=== PATIENT | female | born 1955 | race Caucasian/White ===

== ENCOUNTER 2022-08-20 13:57 | Emergency (ER) | payer MEDICARE, SELFPAY ==
[2022-08-20 14:08] VITALS: BP 138/86; PULSE 87; RESP 18; TEMP 36.7; O2SAT 98
--- NOTE | 2022-08-20 14:25 | ED.GENADULT ---
HPI - General Adult General Chief complaint: Unspecified Stated complaint: Medication Management Time Seen by Provider: 08/20/22 14:26 Source: patient Mode of arrival: ambulatory Limitations: no limitations History of Present Illness HPI narrative: 66-year-old female history of MS and hypertension presented requesting medication refill on lisinopril. Took her last tablet today. She states she is scheduled to follow-up with her new primary care provider on 09/03/2022, however neither the new provider nor the old provider will prescribe the 2 weeks of medication bridge that she is requiring. She denies cp, palpitations, n/v/d/f/c. Related Data Home Medications Medication Instructions Recorded Confirmed atorvastatin 20 mg tablet 20 mg PO DAILY 08/20/22 08/20/22 interferon beta-1b 0.3 mg 0.3 mg subcut EVERY OTHER DAY 08/20/22 08/20/22 subcutaneous kit (Betaseron) lisinopril 10 mg tablet 10 mg PO DAILY 08/20/22 08/20/22 Allergies Allergy/AdvReac Type Severity Reaction Status Date / Time Sulfa (Sulfonamide AdvReac Mild Rash Verified 08/20/22 14:26 Antibiotics) Review of Systems Review of Systems: CONSTITUTIONAL: Denies body aches, fever, chills, or sweats. EYES: Denies visual changes, redness, or discharge. ENT: Denies rhinorrhea, congestion, sore throat, or otalgia. CARDIOVASCULAR: Denies chest pain, palpitations, or edema. RESPIRATORY: Denies cough or dyspnea. GASTROINTESTINAL: Denies abdominal pain, nausea, vomiting, or diarrhea. GENITOURINARY: Denies dysuria or hematuria. SKIN: Denies rash, itching, or wounds. MUSCULOSKELETAL: Denies myalgia NEUROLOGIC: Denies headache, numbness, tingling, or weakness. All systems reviewed & are unremarkable except as noted in HPI and below PMFSH Past Medical History Medical History (Updated 08/20/22 @ 14:40 by Tiara Box APRN) Hypertension Multiple sclerosis Comments At time of signature, I have reviewed and agree with nursing past medical, surgical, social and family history unless otherwise noted. Please see nursing chart for further information. There is no relevant family history pertinent to the presenting complaint Exam Narrative: GENERAL: Well-appearing HEAD: Normocephalic, atraumatic. EYES: EOMI. No redness or drainage. Conjunctivae normal. ENT: Mucous membranes pink and moist. No rhinorrhea. NECK: Normal AROM. CHEST: No respiratory distress. Clear to auscultation. HEART: Regular rate and rhythm. No murmur appreciated. Normal peripheral pulses. ABDOMEN: Soft, nontender, nondistended, normal active bowel sounds. MUSCULOSKELETAL: No bony tenderness. Using walker. EXTREMITIES: No edema. SKIN: Warm, dry, no rash. Capillary refill normal. Normal skin turgor. NEURO: No focal deficits. Alert and oriented x3. Gait steady with walker. PSYCH: Normal affect. Course Course Emergency Course: Patient is aware of diagnosis, understands and agrees to treatment plan. Anticipatory guidance given. Patient agrees to follow-up as directed and is aware of reasons to seek care at the emergency department. Portions of this record may have been created with voice recognition software Level of Care: Express Care Visit Vital Signs Vital signs: Vital Signs Temperature 98.0 F 08/20/22 14:08 Pulse Rate 87 08/20/22 14:08 Respiratory Rate 18 08/20/22 14:08 Blood Pressure 138/86 08/20/22 14:08 Pulse Oximetry 98 08/20/22 14:08 Oxygen Delivery Room Air 08/20/22 14:08 Temperature 98.0 F 08/20/22 14:08 Pulse Rate 87 08/20/22 14:08 Respiratory Rate 18 08/20/22 14:08 Blood Pressure 138/86 08/20/22 14:08 Pulse Oximetry 98 08/20/22 14:08 Oxygen Delivery Room Air 08/20/22 14:08 Medical Decision Making [facility] Narrative Medical decision making narrative: Patient is scheduled with PCP in 2 weeks. BP well controlled. Will give Rx for 14 days of lisinopril 10mg. She denies any renal or cardiac history. Advised
== END 2022-08-20 14:37 | disposition home or self-care (01) ==
PROVIDERS: Emergency Provider Nurse Practitioner Family
DX: Z76.0 Encounter for issue of repeat prescription (principal); I10 Essential (primary) hypertension; G35 Multiple sclerosis
CPT/HCPCS: 99211; G0463

== ENCOUNTER 2022-12-27 10:52 | Emergency (ER) | payer MEDICARE, SELFPAY ==
[2022-12-27 11:00] VITALS: BP 147/80; PULSE 100; RESP 18; TEMP 36.7; O2SAT 98
--- NOTE | 2022-12-27 11:04 | ED.URI ---
HPI - URI/Sore Throat General Chief Complaint: Upper Respiratory Infection Stated Complaint: Not Feeling Well Time Seen by Provider: 12/27/22 11:15 Source: patient and family Mode of arrival: ambulatory Limitations: no limitations History of Present Illness HPI Narrative: 67-year-old female with history of MS presents with concern for fever on and off for the last week. She reports fever up to 101.4. She denies any other symptoms. Denies upper respiratory infection symptoms, cough, abdominal pain, nausea, vomiting, back pain, urine frequency, urgency, dysuria. She reports she checked her temperature when her MS symptoms become worse. She reports when she has a fever she has more difficulty walking and talking. Patient reports she called her primary doctor, they were unable to get her until Friday MD elicited complaint: fever Related Data Home Medications Medication Instructions Recorded Confirmed atorvastatin 20 mg tablet 20 mg PO DAILY 08/20/22 12/27/22 interferon beta-1b 0.3 mg 0.3 mg subcut EVERY OTHER DAY 08/20/22 12/27/22 subcutaneous kit (Betaseron) lisinopril 10 mg tablet 10 mg PO DAILY 08/20/22 12/27/22 denosumab 60 mg/mL subcutaneous See Rx Instructions .Route .COMPLEX 12/27/22 12/27/22 syringe (Prolia) Allergies Allergy/AdvReac Type Severity Reaction Status Date / Time Sulfa (Sulfonamide AdvReac Mild Rash Verified 12/27/22 10:56 Antibiotics) Review of Systems Review of Systems: CONSTITUTIONAL: Denies malaise, chills, sweats. Reports fever. EYES: Denies redness, or discharge. ENT: Denies rhinorrhea, congestion, sinus pain, otalgia or sore throat. CARDIOVASCULAR: Denies chest pain, palpitations, or edema. RESPIRATORY: Denies cough or dyspnea. GASTROINTESTINAL: Denies abdominal pain, nausea, vomiting, diarrhea, bloody, or mucous stools. GENITOURINARY: Denies frequency, urgency, dysuria or hematuria. SKIN: Denies rash or itching. MUSCULOSKELETAL: Denies back pain, joint pain, or myalgia. NEUROLOGIC: Denies numbness, weakness, or headache. PSYCHIATRIC: Denies anxiety or depression. All systems reviewed & are unremarkable except as noted in HPI and below PMFSH Past Medical History Medical History (Updated 09/22/23 @ 11:59 by Aaliyah Cabezas NP) Hypertension Multiple sclerosis Comments At time of signature, agree with nursing past medical, surgical, social and family history. There is no relevant family history pertinent to the presenting complaint Exam Narrative: GENERAL: Well-appearing, well-nourished, and in no acute distress. HEAD: Normocephalic, atraumatic. EYES: PERRLA, sclera clear, and EOMI. No nystagmus. ENT: Nares clear, turbinates pink, no rhinorrhea or epistaxis. Mucous membranes moist. TM pearly varela with sharp light reflex bilaterally; no tragal tenderness. Oropharynx without erythema or lesions. Tonsils not enlarged and without exudate. NECK: Supple. No lymphadenopathy. No jugular venous distension, thyromegaly, or carotid bruits. Carotids were easily palpable bilaterally. CHEST: No respiratory distress. Clear to auscultation. No bony deformities, no asymmetry. Speaks in full sentences. HEART: Regular rate and rhythm. No murmur heard. Normal peripheral pulses. ABDOMEN: Soft, nontender, nondistended, normal active bowel sounds, no palpable masses. EXTREMITIES: Normal range of motion. No edema. Normal strength and sensation. SKIN: Warm, dry, no visible rash. NEURO: Alert and oriented x3. No focal deficits. Cranial nerves II through XII grossly intact PSYCH: Normal mood and affect Course Course Emergency Course: Patient is aware of diagnosis, understands and agrees to treatment plan. Anticipatory guidance given. Patient agrees to follow-up as directed and is aware of reasons to seek care at the emergency department. Portions of this record may have been created with voice recognition software Level of Care: Express Care Visit Vital Signs Vital signs: Vital Signs
== END 2022-12-27 12:01 | disposition home or self-care (01) ==
PROVIDERS: Emergency Provider Nurse Practitioner; PCP Nurse Practitioner Family
DX: N39.0 Urinary tract infection, site not specified (principal); Z20.822 Contact with and (suspected) exposure to COVID-19; I10 Essential (primary) hypertension; I05.0 Rheumatic mitral stenosis
CPT/HCPCS: 81003; 87086; 87088; 87426; 87804; 99213; C9803; G0463

== ENCOUNTER 2023-01-02 11:10 | Emergency (ER) | payer MEDICARE, SELFPAY ==
[2023-01-02 11:18] VITALS: BP 143/70; PULSE 95; RESP 18; TEMP 36.4; O2SAT 98
--- NOTE | 2023-01-02 11:19 | ED.GENADULT ---
HPI - General Adult General Chief complaint: Skin/Abscess/Foreign Body Stated complaint: Feeling Unwell Source: patient, family and RN notes reviewed History of Present Illness HPI narrative: 67 yo F presents to urgent care with at side. Pt presents today with continued fevers x 8 days. Pt was seen here 6 days ago on 12/27/22 for fevers. Pt was dx with a UTI at that time and given Cipro which she has finished with no improvement. Pt also tested negative for Covid that day. Denies any sore throat, ear pain, chest pain, SOB, abdominal pain, N/V/D, dysuria, lower back pain, congestion, or cough. Pt has been controlling her fevers with OTC antipyretics at home. Related Data Home Medications Medication Instructions Recorded Confirmed atorvastatin 20 mg tablet 20 mg PO DAILY 08/20/22 01/02/23 interferon beta-1b 0.3 mg 0.3 mg subcut EVERY OTHER DAY 08/20/22 01/02/23 subcutaneous kit (Betaseron) lisinopril 10 mg tablet 10 mg PO DAILY 08/20/22 01/02/23 denosumab 60 mg/mL subcutaneous See Rx Instructions .Route .COMPLEX 12/27/22 01/02/23 syringe (Prolia) Allergies Allergy/AdvReac Type Severity Reaction Status Date / Time Sulfa (Sulfonamide AdvReac Mild Rash Verified 01/02/23 11:25 Antibiotics) Review of Systems Review of Systems: CONSTITUTIONAL: fever EYES: Denies visual changes, redness, or discharge. ENT: Denies otalgia and sore throat CARDIOVASCULAR: Denies chest pain, palpitations, or edema. RESPIRATORY: Denies cough or dyspnea. GASTROINTESTINAL: Denies abdominal pain, nausea, vomiting, or diarrhea. GENITOURINARY: Denies dysuria or hematuria. SKIN: reddend, tender area to left upper thigh MUSCULOSKELETAL: Denies back pain, joint pain, or myalgia. NEUROLOGIC: Denies headache, numbness, or weakness. Pertinent positives per HPI. [facility], [facility] Past Medical History Medical History (Updated 01/02/23 @ 11:44 by Monica Guardado APRN) Hypertension Multiple sclerosis Comments At the time of my signature, I reviewed and agree with the nursing past medical, surgical, social, and family history. There is no relevant family history pertinent to the patient complaint. Exam Narrative: GENERAL: This is a well-nourished, well-developed patient, in no apparent distress. HEAD: normocephalic, atraumatic. EYES: Sclera clear/white. Vision is grossly intact. EARS: External ears normal, auditory canals clear and without drainage, TMs normal without perforation. Hearing grossly intact. NOSE: External nose normal with no obvious nasal discharge, nares without redness, no rhinorrhea. THROAT: Mucous membranes moist, posterior pharynx clear. NECK: Neck supple, non-tender without lymphadenopathy, masses or thyromegaly. CARDIOVASCULAR: Regular rate and rhythm without murmurs, gallops, or rubs. RESPIRATORY: Clear to auscultation. Breath sounds equal bilaterally. No wheezes, rales, or rhonchi. GASTROINTESTINAL: Abdomen soft, non-tender, nondistended. Bowel sounds are active. No hepato-splenomegaly, or palpable masses. No guarding. SKIN: hot, erythemic, area of cellulitis to left upper thigh, measuring 10cm x 15 cm. NEURO: awake, alert, and oriented to person, place and time. There were no obvious focal neurologic abnormalities. EXTREMITIES: No clubbing, cyanosis, or edema. No joint tenderness, effusion, or edema noted. BACK: Nontender without deformity or crepitus. No flank tenderness. Course Course Level of Care: Express Care Visit Vital Signs Vital signs: Vital Signs Temperature 97.5 F L 01/02/23 11:18 Pulse Rate 95 01/02/23 11:18 Respiratory Rate 18 01/02/23 11:18 Blood Pressure 143/70 H 01/02/23 11:18 Pulse Oximetry 98 01/02/23 11:18 Oxygen Delivery Room Air 01/02/23 11:18 Temperature 97.5 F L 01/02/23 11:18 Pulse Rate 95 01/02/23 11:18 Respiratory Rate 18 01/02/23 11:18 Blood Pressure 143/70 H 01/02/23 11:18 Pulse Oximetry 98 01/02/23 11:18 Oxygen Delivery Room Air
--- NOTE | 2023-01-02 11:44 | PC.NURSE ---
PT REPORTS SHE WOULD LIKE TO GO TO [facility] IN [place].
--- NOTE | 2023-01-02 11:54 | PC.NURSE ---
PT COMPLETED A COURSE OF CIPRO THIS PAST WEEK.
== END 2023-01-02 12:00 | disposition short-term general hospital (02) ==
PROVIDERS: Emergency Provider Nurse Practitioner Family; PCP Nurse Practitioner Family
DX: L03.116 Cellulitis of left lower limb (principal); R50.9 Fever, unspecified; I10 Essential (primary) hypertension; G35 Multiple sclerosis; Z79.899 Other long term (current) drug therapy
CPT/HCPCS: 99202; G0463